=== PATIENT | female | born 1990 | race Caucasian/White ===

== ENCOUNTER 2020-01-26 19:51 | Emergency (ER) | payer OTHER, SELFPAY ==
[2020-01-26 20:10] VITALS: BP 131/81; PULSE 67; RESP 19; TEMP 36.9; O2SAT 99; BMI 26.2
--- NOTE | 2020-01-26 20:23 | HMH.EDUTC ---
[facility] [place] Clinical Impression: Strep throat Disposition: Home, Self-Care Condition on Discharge: Good Instructions: Strep Throat, DI for Strep Throat Additional Instructions: Drink plenty of fluids. Take tylenol or ibuprofen for pain or fever. Take the medications as directed. Follow up with your regular doctor. GO TO THE ER FOR ANY WORSENING SYMPTOMS Throw your tooth brush away and get a new one. Prescriptions: predniSONE [Deltasone 10mg tablet] 10 mg PO BID 3 Days #6 tab Transmission Status: Pending to [facility] #[id number] Azithromycin [Z-Joe 250mg Tab*] 250 mg PO UD DOSE PK #6 tab Transmission Status: Pending to [facility] #[id number] Referrals: Malcom Kunz [Primary Care Provider] - Time of Disposition: 20:27 Medical Decision Making - Medical Records Medical records reviewed: No: I reviewed the patient's medical records. - [place] Inquiry Pt receiving controlled substance: No Vital Signs: 01/26/20 20:10 01/26/20 20:31 Temperature 98.4 F 98.4 F Temperature Source Oral Pulse Rate 67 Pulse Rate [Right Brachial] 67 Respiratory Rate 19 19 Blood Pressure 131/81 Blood Pressure [Right Arm] 131/81 Blood Pressure Mean [Right Arm] 97 Blood Pressure Source [Right Arm] Automatic Cuff Blood Pressure Position [Right Arm] Sitting 02 Sat by Pulse Oximetry 99 Oxygen Delivery Method Room Air - Lab Data Lab results reviewed: Yes: I reviewed the patient's lab results. Lab Results 01/26/20 20:08: Influenza Type A Ag Negative, Influenza Type B Ag Negative 01/26/20 20:08: Strep Scn [facility] Positive A Orders (Tests/Meds): ORDERS Category Date Time Status Covid-19 Nasal PCR Sendout [facility] 01/26/20 20:15 Received [facility] [place] - General Stated complaint: cold wants COV test Time Seen by Provider: 01/26/20 20:15 Mode of Arrival: Ambulatory Source of Information: Patient Limitations: No Limitations Description of Symptoms (Recalled from Triage Doc. by RN): PATIENT C/O COUGH, CONGESTION, BODY ACHES, HEADACHE, AND SORE THROAT SINCE SUNDAY HEENT Symptoms (Recalled from RN notes): Yes Resp Symptoms (Recalled from RN notes): Yes Skin Symptoms (Recalled from RN notes): No MS Symptoms (Recalled from RN notes): No Functional Status (Recalled from RN notes): WNL - History of Present Illness Provider Complaint: She c/o 2 days of sore throat and feeling bad. She has been chilling, but has not had a documented fever. 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 - Related Data Previous Rx's Medication Instructions Recorded Azithromycin [Z-Joe 250mg Tab*] 250 mg PO UD DOSE PK #6 tab 01/26/20 predniSONE [Deltasone 10mg tablet] 10 mg PO BID 3 Days #6 tab 01/26/20 Allergies Allergy/AdvReac Type Severity Reaction Status Date / Time No Known Allergies Allergy Verified 01/26/20 20:17 - Worker's Comp Is this a Worker's Comp case?: No [facility] History - Hepatitis A Screen Drug use history?: No High risk sexual behaviors?: No History of sexually transmitted infection?: No Currently employed?: No Childcare worker?: No Do you have indoor plumbing?: Yes Do you have electricity?: Yes Attestation statement:: This patient has been screened for Hepatitis A risk factors. I have reviewed the patient's past medical history: Yes - Social History Smoking Status: Current every day smoker Tobacco Type: cigarettes # Packs/Day (cigarettes): 1 Alcohol Intake: never Occupational Status: other ROS Obtained: Yes All systems reviewed & no additional complaints - Constitutional Constitutional: Reports chills, Denies fever(s), Reports poor appetite, Reports malaise - ENT Ears, Nose, Mouth, and Throat: Reports as per HPI - Cardiovascular Cardiovascular: Denies chest pain - Respiratory Respiratory: No chest congestion, Yes cough Physical Exam - General General appearance: rush
[2020-01-26 20:24] LABS: UTC Influenza A Antigen Negative (Negative); UTC Strep Screen (Rapid) Positive (Negative)
[2020-01-26 20:25] LABS: UTC Influenza B Antigen Negative (Negative)
[2020-01-26 20:31] VITALS: BP 131/81; PULSE 67; RESP 19; TEMP 36.9; O2SAT 99
[2020-01-28 08:00] LABS: Covid-19 Nasal PCR Sendout Lex NOT DETECTED
== END 2020-01-26 20:33 | disposition home or self-care (01) ==
PROVIDERS: Emergency Provider Nurse Practitioner Family; PCP Family Medicine
DX: J02.0 Streptococcal pharyngitis (principal); Z20.828 Contact with and (suspected) exposure to other viral communicable diseases
CPT/HCPCS: 87804; 87880; 99202; U0004